=== PATIENT | female | born 1995 | race Hispanic/Latino ===

== ENCOUNTER 2018-10-03 15:20 | Outpatient (CLI) | payer BC ==
--- NOTE | 2018-10-03 19:51 | MRI ---
MRI LUMBAR SPINE NONCONTRAST: 10/03/2018 HISTORY: Back pain radiating to right leg and groin. The patient states injury four weeks ago, after lifting weights. Radiation of pain into right hip. FINDINGS: The visualized retroperitoneal structures demonstrate a normal MRI appearance. The conus medullaris is normal in appearance and terminates at the L1-L2 level. Normal signal intensity is demonstrated in the bone marrow. T12-L1: There is no disk bulge or disk herniation. The central spinal canal and neural foramina are patent. L1-L2: There is no disk bulge or disk herniation. The central spinal canal and neural foramina are patent. L2-L3: There is no disk bulge or disk herniation. The central spinal canal and neural foramina are patent. L3-L4: There is minimal disk bulge, but the central spinal canal and neural foramina are patent. L4-L5: There is mild broad-based disk bulge, greater laterally on the left, which results in slight effacement of the ventral aspect of the thecal sac and mild left-sided neural foraminal narrowing. L5-S1: There is mild loss of intervertebral disk height. There is a broad-based disk bulge with abraham tral disk protrusion present. This does encroach on the bilateral traversing S1 nerve roots but does not appear to displace the nerve roots. There does appear to be mild to moderate right-sided neural foraminal narrowing, but the left neural foramen is patent. IMPRESSION: 1. Disk degenerative changes at the L5-S1 level with a broad-based disk bulge and central disk protr usion. This does result in narrowing of the right neural foramen, and there is encroachment on the b ilateral traversing S1 nerve roots without significant displacement of either S1 nerve root. 2. Minimal disk bulges at the L3-L4 and L4-L5 levels. POS: [facility]
== END 2018-10-03 15:21 | disposition home or self-care (01) ==
LOC: BICMRI 15:20
PROVIDERS: ATTEND Family Medicine
DX: M54.5 Low back pain (principal); M51.37 Other intervertebral disc degeneration, lumbosacral region; M51.27 Other intervertebral disc displacement, lumbosacral region; M51.86 Other intervertebral disc disorders, lumbar region; M48.061 Spinal stenosis, lumbar region without neurogenic claudication; M48.07 Spinal stenosis, lumbosacral region
CPT/HCPCS: 72148